=== PATIENT | male | born 1970 | race Caucasian/White ===

== ENCOUNTER 2021-04-06 08:29 | Emergency (ER) | payer OTHER, SELFPAY ==
[2021-04-06 08:42] VITALS: BP 144/72; PULSE 104; RESP 18; TEMP 36.7; O2SAT 95
--- NOTE | 2021-04-06 09:01 | W.ED.GENAD ---
Discharge Plan Disposition Patient Disposition: HOME Condition: Stable Discharge Details Clinical Impression: Muscle spasm, Low back pain, Sciatica Primary Care Provider: Hemanth Simon ED Provider: Filomena Watt Home Meds and New Rx's Prescriptions: New methocarbamol 750 mg tablet 1,500 mg PO QID PRN (Reason: muscle spasm) Qty: 20 RF: 0 Continued ibuprofen 800 mg Tablet 800 mg PO TID PRNRF: 0 Serena Back and Body 500-32.5 mg Tablet 2 tab PO PRN PRNRF: 0 Discharge Instructions Instructions: Methocarbamol (By mouth), Sciatica (ED), Muscle Spasm (ED) Additional Instructions: Your exam today is most concerning for recurrence of your muscle spasm, low back pain and sciatica. Please encourage hydration. Please use heat to help with muscle spasm and discomfort. You may continue with Tylenol and ibuprofen as needed for discomfort. Please take as directed on the bottle. You received Tylenol here this morning. You may continue with the lidocaine patches as well to help with your discomfort. You are being sent home with methocarbamol which should help as a muscle relaxer. Please not drive will take this medication as it can cause sedation. As discussed, you are not given his medications. You need to drive home. You may take 2 tabs 3-4 times per day as needed for spasm. Please encourage gentle stretching. Referral for therapy has also been attached, please call local providers to arrange for follow-up appointment. You are no longer an established patient with Dr. Simon, I have asked her care management team to help establish local primary care in the next 2 weeks. If you develop fever/chills, increased pain, inability stay hydrated, change in bowel or bladder habits or other new/worsening symptoms please seek care urgently once again. Stand Alone Forms: Physical Therapy Referral Referrals: Hemanth Simon [Primary Care Provider] - Discharge Data Discharge Date/Time-TO BE ENTERED AT DEPARTURE: 04/06/21 09:45 Medical Decision Making Patient is a pleasant 50-year-old male presenting today with chief complaint of left lower back pain and pain radiating into the left leg. This is similar to when I had evaluated this patient in 2018. He states that he has had a progressive increase in his discomfort over the past 3 days. He states that this occurred a few days after lifting a deer as well as sitting and unusual places while hunting. Pain is in the left lower aspect of his back. Radiates down the left leg. He denies any change in urinary habit. States he did not have a bowel movement yesterday but this is not atypical for him, particularly when he is uncomfortable or stressed. He denies any fevers or chills. No trauma. On exam, patient appears nontoxic. He does appear uncomfortable. He has a cane with him which he states he does not typically ambulate with. However, he states that when he sneezes, pain increases and the cane can be helpful. Patient has no midline tenderness, no step-offs. No erythema or rash. Patient has notable spasm over the left side of the lower back, worse over the SI joint. With palpation over this area, pain increases and he does have pain that radiates down his leg more. He has good rotation of his back but has increased pain with forward flexion. He has no saddle paresthesias. Sensations are equal in both lower extremities. 2+ distal pulses. Intact capillary refill. Calf soft and nontender. No lower extremity edema. No evidence at this time to suggest cauda equina. No acute trauma. No midline pain. I do not see indication for imaging at this time. Primarily concern at this time for flare of SI joint pain with associated sciatica. Notable muscle spasm on exam. Patient was treated last time with anti-inflammatory, acetaminophen, Lidoderm patch and muscle relaxant. Will repeat this for him as it worked well for him last time. Patient did drive himself here. I did offer to have him the try to have soemone pick him up so he is able to take the muscle relaxer while here. However, he would prefer to be able to take this with home. Will give acetaminophen and Lidoderm now. Patient did have NSAID prior to arrival. Will prescribe Methocarbamol. He iwll continue with heat/ice, stretching, APAP/NSAID. Encourrged hydration. Will refer to PT for his acute flare as well as prevention in the future. Encouraged close f/u with PCP. Strict return precautions discussed. All of his quesetions and concerns were addressed, patient is in agreement with this plan. I tried to make PCP appointment for the patient. He is no longer an established patient as it has been so many years since he has been seen with Dr. Simon. Have asked care management to ensure prompt f/u with local PCP. HPI General Mode of arrival: ambulatory. Date/Time Provider Initiated Documentation: 04/06/21 09:01. Limitations to Documentation: no limitations. Information obtained by: patient, RN notes reviewed and old records reviewed. History of Present Illness 50 year old M presents to the emergency department with the chief complaint of left sided low back pain radiating into LLE, described as severe and similar to prior episodes, with intensity rated at 10. Quality is described as sharp, and is localized to the back. Patient extremity. Patient started experiencing this day(s) and it has been constant. Immobilization improves symptom(s), (feels improved when in one spot but notes that after being sedentary, pain increased) Movement worsens symptoms . Patient notes no other symptoms.; denies chest pain, cough, fever/chills, headaches, malaise, nausea/vomiting, rash, shortness of breath and weakness. Related Data Home Medications Medication Instructions Recorded Confirmed Serena Back and Body 2 tab PO PRN PRN 04/06/21 04/06/21 ibuprofen 800 mg PO TID PRN 04/06/21 04/06/21 methocarbamol 1,500 mg PO QID PRN #20 tab 04/06/21 Previous Rx's Medication Instructions Recorded methocarbamol 1,500 mg PO QID PRN #20 tab 04/06/21 Allergies Allergy/AdvReac Type Severity Reaction Status Date / Time No Known Allergies Allergy Unverified 12/25/13 13:11 General Stated Complaint: Nk/Back Pain SHAUNA: 4 Review of Systems Constitutional Constitutional: Reports as per HPI, Denies chills, Denies fatigue, Denies fever(s) and Denies headache(s) ENT Ears, Nose, Mouth, and Throat: Denies headache(s) Cardiovascular Cardiovascular: Denies chest pain, Denies dyspnea and Denies dyspnea on exertion Respiratory Respiratory: Denies cough, Denies dyspnea and Denies dyspnea on exertion Gastrointestinal Gastrointestinal: Denies abdominal pain, Denies change in bowel habits and Denies fecal incontinence Genitourinary Genitourinary: Reports as per HPI, Denies urinary hesitancy and Denies urinary incontinence Musculoskeletal Musculoskeletal: Reports as per HPI, Reports back pain, Denies muscle weakness, Denies numbness and Reports stiffness Integumentary/Breasts Skin/Breast: Reports as per HPI and Denies rash Neurologic Neurologic: Reports as per HPI, Denies headache(s), Denies localized weakness, Denies numbness, Denies radicular pain, Denies sensory deficit and Reports tingling (when pain is severe, has had some tingling on the left foot, none currently) Endocrine Endocrine: Denies fatigue COUNTS INCLUDE 234 BEDS AT THE [facility] Active Problem List (Updated 04/06/21 @ 09:31 by SUHAIL Hameed) Muscle spasm (Acute) Low back pain (Acute) Sciatica (Acute) Social History Smoking/Tobacco Use Status: Current every day Smoking risk assessment performed?: Yes Alcohol Intake: current Alcohol Intake frequency: 0-2 drinks per day Alcohol type: beer Drug use: Never Substance use type: does not use Do you feel safe in your relationship?: Yes Exam Const General: cooperative, healthy appearing, comfortable (appears stiff, uncomfortable with movements), no acute distress, well developed and well groomed Nutritional Appearance: average body habitus and well nourished Orientation: alert and awake Eyes General: appearance normal, both eyes and all related structures Neck Neck: normal visual inspection, full ROM, no lymphadenopathy and no meningeal signs Resp Effort & Inspection: normal respiratory effort and able to speak in complete sentences Auscultation: clear to auscultation bilaterally, no rales, no rhonchi and no wheezes Cardio Rate: regular rate Rhythm: regular rhythm Heart Sounds: S1 normal and S2 normal GI Inspection: normal to inspection Palpation: soft and nontender Auscultation: normal bowel sounds Back/Spine/Pelvis Back/spine/pelvis image: 1. Area of pain with palpation. No midline pain or step off. No rash. Palpable muscle spasm over this area. With palpation, pain radiates into LLE. Full ROM rotationally. Forward flexion to 45 degrees secondarty to pain. Able to extend but discomfort doing so. No saddle paresthesias. Intact reflexes compared to contralateral side. 5/5 strength in BLE. Sensation intact Skin General skin exam: no rashes or lesions noted Neuro General: patient alert and patient awake Cognition: normal cognition Speech: speech normal Gait: antalgic (appears stiff, has a cane but not depending on this) Motor: muscle tone normal throughout, strength 5/5 throughout, no movement abnormalities noted and no fasciculations Sensory Exam: no sensory deficits noted (no saddle paresthesias) DTR's: Rt Patellar: 2+, Lt Patellar: 2+, Rt Ankle: 2+ and Lt Ankle: 2+ Extrem General: normal to inspection, full ROM, capillary refill normal, no joint enlargement, no pedal edema and no calf tenderness Psych Appearance: grossly normal and well kempt Mental Status: mental status grossly normal Speech and Movement: speech and movement normal Course Vital Signs Vital signs: Vital Signs Temperature 36.7 C 04/06/21 08:42 Pulse 104 H 04/06/21 08:42 Respiratory Rate 18 04/06/21 08:42 Blood Pressure 144/72 H 04/06/21 08:42 Pulse Oximetry 95 04/06/21 08:42 Temperature 36.7 C 04/06/21 08:42 Temperature Source Skin 04/06/21 08:42 Pulse 104 H 04/06/21 08:42 Respiratory Rate 18 04/06/21 08:42 Respiratory Effort Non-Labored 04/06/21 08:46 Blood Pressure 144/72 H 04/06/21 08:42 Blood Pressure Position Sitting 04/06/21 08:42 Pulse Oximetry 95 04/06/21 08:42 Oxygen Delivery Method Room Air 04/06/21 08:42 Oxygen Flow Rate 0 04/06/21 08:42 Pain Level 10 04/06/21 08:48 PAWSS Have you Been Recently Intoxicated or Drunk Within the Last 30 days?: No Have you Ever Experienced Previous Episodes of Alcohol Withdrawal?: No Have you ever Experienced Withdrawal Seizures?: No Have you ever Experienced Delirium Tremens(DT)s?: No Have you ever undergone Alcohol Rehabilitation Treatment (i.e, inpt ot outpatient treatment programs)?: No Have you ever Experienced Blackouts?: No Have you ever Combined Alcohol with other Downers within the last 90 days?: No Have you ever Combined Alcohol with any other Substance of Abuse during the last 90 days?: No Positive Blood Alcohol level on Presentation? [PCS.BAL]: No Evidence of Increased Autonomic Activity (i.e. HR>120, tremor, sweating, agitation, nausea)?: No Result: 0
[2021-04-06] MEDS: Acetaminophen 500 MG TAB 1000 MG PO (09:33)
[2021-04-06] MEDS: Lidocaine 5% Patch 1 PATCH TP (09:34)
--- NOTE | 2021-04-06 09:37 | NUR.NOTE ---
Nursing Note: Referral given to Care Management for back pain, muscle spasms, sciatica and establish care within 2 week with new PCP. Radha Strickland
[2021-04-06 09:39] VITALS: PULSE 84; RESP 16
[2021-04-06] MEDS: Methocarbamol 750 MG TAB 3000 MG PO (09:43)
--- NOTE | 2021-04-07 11:19 | CMPROGNOTE_ITS ---
- If Service Date Differs Date of service: 04/07/21 Time of Service: 11:19 Care Management Progress Note Sang is seen in the ED for back pain. At the request of ED provider, REYNOLD coordinates a referral to Dr. Vishnu Parisi, [facility], on-call provider, to assist Sang in obtaining a follow up appointment and in establishing care with a PCP.
== END 2021-04-06 09:45 | disposition home or self-care (01) ==
PROVIDERS: Emergency Provider Physician Assistant; PCP Internal Medicine
DX: M62.830 Muscle spasm of back (principal); M54.42 Lumbago with sciatica, left side
CPT/HCPCS: 99283

== ENCOUNTER 2022-05-27 16:04 | Outpatient (REF) | payer OTHER, SELFPAY ==
[2022-05-27 15:41] LABS: Abs Immature Grans 0.06 10^3/uL (0.0-0.06); Absolute Eosinophil Count 0.19 10^3/uL (0.0-0.7); Absolute Lymphocyte Count 1.99 10^3/uL (1.2-3.4); Absolute Monocyte Count 0.71 10^3/uL (0.1-0.8); Absolute Neutrophil Count 7.12 10^3/uL (1.2-6.7); Eosinophils % 1.9; HCT 50.3 % (40.0-50.0); HGB 17.3 g/dL (13.5-17.5); Immature Grans % 0.6; Lymphocytes % 19.6; MCH 31.7 pg (27.0-33.0); MCHC 34.4 % (32.0-36.0); MCV 92 fL (80-95); MPV 10.3 fL (8.0-11.0); Neutrophils % 69.9; Platelet Count 258 10^3/uL (130-400); RBC 5.46 10^6/uL (4.36-5.78); RDW 12.4 % (11.8-14.1); RDW-SD 42.4 fL; WBC 10.17 10^3/uL (4.4-10.8)
[2022-05-27 16:02] LABS: Calculated LDL 129 mg/dL (<100); Cholesterol 194 mg/dL (<200); HDL Cholesterol 47 mg/dL (40-60); Triglyceride 94 mg/dL (<150)
== END 2022-05-27 16:05 | disposition home or self-care (01) ==
LOC: NCHCN 16:04
PROVIDERS: PCP Internal Medicine; Visit Provider Nurse Practitioner Family
DX: R03.0 Elevated blood-pressure reading, without diagnosis of hypertension (principal); R10.31 Right lower quadrant pain; N52.9 Male erectile dysfunction, unspecified; Z12.5 Encounter for screening for malignant neoplasm of prostate; Z13.220 Encounter for screening for lipoid disorders
CPT/HCPCS: 80061; 84153; 85025

== ENCOUNTER 2022-10-12 13:27 | Outpatient (REF) | payer OTHER, SELFPAY ==
[2022-10-12 16:12] LABS: ALT 33 U/L (16-63); AST 20 U/L (15-37); Alkaline Phosphatase 73 U/L (46-116); Anion Gap 10.2 mmol/L (3-11); BUN 14 mg/dL (7-18); Bilirubin, Total 0.4 mg/dL (0.2-1.0); CO2 24.8 mmol/L (21.0-32.0); CREATININE 0.8 mg/dL (0.70-1.30); Calcium 9.1 mg/dL (8.5-10.1); Calculated LDL 86 mg/dL (<100); Chloride 103 mmol/L (98-107); Cholesterol 156 mg/dL (<200); Estimated GFR 106.48 (mL/min/1.73m2); Glucose 126 mg/dL (74-106); HDL Cholesterol 55 mg/dL (40-60); Potassium 4.3 mmol/L (3.5-5.1); Sodium 138 mmol/L (136-145); Total Protein 7.4 g/dL (6.4-8.2); Triglyceride 77 mg/dL (<150)
== END 2022-10-12 13:28 | disposition home or self-care (01) ==
LOC: NCHCN 13:27
PROVIDERS: PCP Internal Medicine; Visit Provider Nurse Practitioner Family
DX: I10 Essential (primary) hypertension (principal); Z13.220 Encounter for screening for lipoid disorders
CPT/HCPCS: 80053; 80061

== ENCOUNTER 2023-11-29 19:03 | Outpatient (REF) | payer BC, SELFPAY ==
[2023-11-29 16:48] LABS: Hemoglobin A1C 5.7 % (<5.7)
[2023-11-29 17:02] LABS: Calculated LDL 79 mg/dL (<100); Cholesterol 149 mg/dL (<200); HDL Cholesterol 53 mg/dL (40-60); Triglyceride 87 mg/dL (<150)
== END 2023-11-29 19:04 | disposition home or self-care (01) ==
LOC: NCHCN 19:03
PROVIDERS: PCP Internal Medicine; Visit Provider Nurse Practitioner Family
DX: E78.5 Hyperlipidemia, unspecified (principal); Z13.1 Encounter for screening for diabetes mellitus
CPT/HCPCS: 80061; 83036

== ENCOUNTER 2024-05-31 08:55 | Day surgery (SDC) | payer OTHER, SELFPAY ==
--- NOTE | 2024-05-30 21:08 | PDOC.DSDIS_ITS ---
Date of service: 05/31/24 Discharge Plan Disposition Patient Disposition: Home Condition: Good Discharge Details Reason For Visit: colon cancer screening Attending Provider: Pao Pratt Primary Care Provider: Hemanth Simon Home Meds and New Rx's Prescriptions: Continued lisinopril 10 mg tablet 10 mg PO DAILY Discontinued bisacodyl [Dulcolax (bisacodyl)] 5 mg tablet,delayed release (DR/EC) 5 mg PO ONCE Qty: 4 0RF Rx Instructions: Take per colonoscopy instructions provided by ordering providers office polyethylene glycol 3350 17 gram/dose powder 17 g PO ONCE Qty: 238 0RF Rx Instructions: Take per colonoscopy instructions provided by ordering providers office Discharge Instructions Additional Instructions: DSU Colonoscopy Post- Op Instructions Instructions for Everyone who is given Anesthesia: For your safety, please do the following for the next twenty-four (24) hours: *Do Not operate a motor vehicle (car, truck, motorcycle, etc.) *Do Not drink alcoholic beverages or use any recreational drugs for the first 24 hours or while taking pain medications. The medications in your body may have a reaction that can be dangerous. *Do Not make any important decisions or sign any important papers. Findings: -Large colon polyp. -Diverticula. Make sure you are moving your bowels on a regular basis and not straining. If you find you are having problems with constipation/straining, then is recommended you a fiber supplement daily such as Metamucil. -Smoking cessation is recommended to prevent colon cancer. Follow up: My office will send you a letter in 3-4 with time with the results of the pathology. Most likely we will want to repeat a colonoscopy in 3 years time. 1. No lifting over 20 pounds or strenuous activity for the first 24 hours after your procedure. After 24 hours there are no restrictions on your activity but you may feel fatigued for a few days. 2. After you arrive home you may have a light meal and return to your normal diet as you can tolerate it without feeling sick to your stomach. 3. You may have a bloated, gaseous feeling in your belly (abdomen) after a colonoscopy. Passing gas and belching will help. Walking or lying down on your left side with your knees flexed may relieve the discomfort. Call the office at [phone] (Office) or [phone] (Hospital) right away if you notice any of the following: a.Vomiting of blood or ?coffee ground stools?. b.Rectal bleeding 1Tbsp, blood clots or continuous bleeding. c.Severe belly (abdominal) pain. d.A hard distended belly (abdomen) and an inability to pass gas. 4. Please don?t expect to have a normal BM (bowel movement) for 2-3 days after your procedure. 5. If there are questions regarding the findings of your procedure, please contact your doctor 6. If you are unable to contact your doctor with a problem, contact the hospital at [phone]. 7. Continue all your regular medications unless directed otherwise. I understand the above instructions and have no questions. Signature of Patient or Adult Escort Name of Responsible Adult Escort Signature of Nurse Date/Time Stand Alone Forms: Anesthesia Discharge Inst., Milton Tineo (DSU) Activity:: see above Diet:: see above Discharge Orders Discharge Orders: Discharge Order (Routine); Ordered 05/31/24 Ordered By: Pao Pratt DS: Diagnosis Discharge Diagnosis (1) Screening for malignant neoplasm of colon performed: Status: Acute Asessment and Plan: The patient is seen and examined after their colonoscopy.? The patient has been able to pass gas.? They are not having abdominal pain.? They have been able to tolerate liquids and a snack.? They do not have any nausea or vomiting.? They are not having any chest pain or shortness of breath.??? They are not having any rectal bleeding. Their vital signs have been stable-see nursing notes. We discussed findings during their colonoscopy, and any biopsies that were done/polyps that were removed. The patient will be sent a letter with any biopsy results, and when to repeat the colonoscopy.-see discharge instructions. Patient was given explicit instructions to follow-up regarding colonoscopy-refer to discharge instructions.? We reviewed resumption of medications. Patient verbalized understanding and discharged in stable and satisfactory condi tion- See nursing notes. (2) Diverticula of colon: Status: Acute (3) Adenomatous polyps: Status: Acute (4) Smoker: Status: Acute
--- NOTE | 2024-05-30 21:12 | W.COLOREPORT ---
Date of service: 05/31/24 Time of Service: 11:45 Colonoscopy Report Date of procedure: 05/31/24 Pre-op diagnosis general: CRC screening Post-op diagnosis procedure note: other (Polyps/diverticula/internal hemorrhoids) Surgeon: Pao Pratt Anesthesia Type: General:No Airway Estimated blood loss (mL): 2 Pathology: other Complications: None Disposition: same day Prep: Miralax/Dulcolax Retraction Time: 19 Procedure Description: After informed consent was obtained, explaining risks of the procedure, including but not limits to: bleeding, infections, complications of anesthesia, perforations (which may require antibiotics and /or surgery and stay in the hospital), and abdominal pain/cramping. The patient was taken to the procedure room and placed in a left decubitous position. Monitors were applied and a time out was done. The patients name, date of , procedure, allergies to medications and metal in their body was reviewed. The patient was then sedated. Once sedated and comfortable a rectal exam was done. External exam was normal. Internal exam revealed a normal sphincter tone and no palpable masses. The prostate no palpable masses The previously lubricated Olympus scope was then introduced (see RN notes for scope number) and retrofelexed. Grade 2 internal hemorrhoids x 2 columns were identified. The scope was then advanced to the cecum without difficulty. The TI and appendiceal orifice were identified. The scope was then slowly retracted over 19 minutes back into the rectum. Polyps: A flat, .5cm polyp was found at appendiceal orifice. At 40 cm he had a large 2 cm polyp that was on a long stock. This is removed with a hot snare. All specimen is retrieved. A clip is placed over the end of the stalk. This was removed with a cold biting forceps. All of the specimen was retrieved. This will be sent to pathology. There is no bleeding noted from the polypectomy site. Diverticula: pt had a moderate amount of small mouthed diverticula in the sigmoid colon. There were no signs of active bleeding or infection. The mucosa is pink and healthy w/ a normal vascular pattern. The scope was removed, and the patient was woken up and taken back to Same day surgery in stable condition. The patient tolerated the procedure well and there were no immediate complications. Follow up: The patient should follow up in 3 years, unless they develop changes in bowel habits or other new gastrointestinal complaints. [place] Bowel Prep [place] Bowel Prep Right Colon: 3 Left Colon: 3 Transverse Colon: 3 Total Score: 9
[2024-05-31 09:32] VITALS: BP 126/82; PULSE 88; RESP 16; TEMP 36.7; O2SAT 94
--- NOTE | 2024-05-31 09:51 | W.ANESPRE ---
General Info Date of Service Date Performed: 05/31/24 Height: 6 ft 2 in Weight: 116.7 kg Body Mass Index (BMI): 33.0 Surgical Procedure: Operation Date: 05/31/24 09:50 Proposed Procedure Side Surgeon eva Pratt, Meds Allergies and Home Medications Allergies Allergy/AdvReac Type Severity Reaction Status Date / Time No Known Allergies Allergy Verified 05/31/24 09:30 Home Medication ?Medication ?Instructions ?Recorded lisinopril 10 mg tablet 10 mg PO DAILY 08/22/22 Current Visit Medications: Current Medications Generic Name Dose Route Start Last Admin Trade Name Freq PRN Reason Stop Dose Admin Hyoscyamine Sulfate 0.125 mg 05/31/24 05:19 Hyoscyamine 0.125 Mg Sl/Oral/Chew SL 06/30/24 05:18 DIRECTED PRN Ringer's Solution 1,000 mls @ 0 mls/hr 05/31/24 06:00 IV 05/31/24 23:59 INFUSION STEVEN Ringer's Solution 1,000 mls @ 80 mls/hr 05/31/24 09:15 IV 06/30/24 09:14 INFUSION STEVEN IV Miscellaneous Supplies 1 each 05/31/24 06:00 Iv Access IV 05/31/24 23:59 DIRECTED STEVEN Ondansetron HCl 4 mg 05/31/24 05:19 Ondansetron 4 Mg/2 Ml Vial IVP 06/30/24 05:18 Q4H PRN PRN Nausea / Vomiting Sodium Chloride 0 ml 05/31/24 06:00 Normal Saline Flush 10 Ml Syr IV 05/31/24 23:59 PRN PRN Sodium Chloride 0 ml 05/31/24 06:00 Normal Saline 10 Ml Vial IJ 05/31/24 23:59 DIRECTED PRN Sterile Water 0 ml 05/31/24 06:00 Water,Injection,Sterile 10 Ml Vial IJ 05/31/24 23:59 DIRECTED PRN PFSH Active Problems Active Problems: Problem Status Onset Code Screening for malignant neoplasm of colon performed Acute Z12.11 Smoker Acute F17.200 RLQ abdominal pain Acute R10.31 Back pain of lumbar region with sciatica Acute M54.40 Erectile dysfunction Acute N52.9 Right groin pain Acute R10.31 Curvature of the penis Acute Q55.61 Muscle spasm Acute M62.838 Low back pain Acute M54.50 Sciatica Acute M54.30 Medical History Medical History Lumbosacral radiculopathy Essential (primary) hypertension Nicotine dependence Hyperlipidemia Surgical History Surgical History Hx of tonsillectomy Tobacco Smoking/Tobacco Use Status: Current every day Tobacco Type: cigarettes Alcohol Alcohol Intake: current Alcohol intake frequency: 0-2 drinks per day Alcohol type: beer and hard liquor Details: At least 3 drinks/day Substance Use Substance use: Never Substance use type: does not use Vital Signs and Lab Results Vital Signs Most Recent Vital Signs in EMR: Most Recent Vital Signs Temp Pulse Resp BP Pulse Ox 36.7 C 88 16 126/82 94 05/31/24 09:32 05/31/24 09:32 05/31/24 09:32 05/31/24 09:32 05/31/24 09:32 Lab Results Blood Type / Crossmatch: No Data to Display Complete Blood Count: No Data to Display Complete Metabolic Panel: No Data to Display Liver Function Panel: No Data to Display Coagulation Panel: No Data to Display Cardiac Panel: No Data to Display Arterial Blood Gas: No Data to Display Venous Blood Gas: No Data to Display Pancreas Panel: No Data to Display Thyroid Panel: No Data to Display Infectious Disease: No Data to Display Blood Cultures: No Data to Display Toxicology Panel: No Data to Display Anesthesia Assessment and Plan Anesthesia History Personal History: No History of Anesthesia Complications Family History: No Family History of Anesthesia Complications Exercise Tolerance Exercise Tolerance: Metabolic Equivalents>4 Pertinent Negatives Pertinent Negatives: No Symptoms of GERD and No Major Pulmonary Symptoms or Complaints Cardiac & Pulmonary Exam Cardiac Exam: Normal S1/S2 Heart Sounds Pulmonary Exam: Clear Bilateral Breath Sounds Implantable Cardiac Device Does patient have a Pacemaker or an ICD?: No Airway Exam Known Difficult Airway: No Mallampati Class: 2 Mouth Opening: Normal (> 3cm) Thyromental Distance: Greater than 3 cm Neck Range of Motion: Full ROM Neck Circumference: Normal Teeth Condition: Normal Dentition ASA Classification ASA Score: ASA 2 Emergency Case?: No NPO Status NPO Status: NPO Clears >2 hours, Solids >8 hours Anesthesia Plan Resuscitation Status: Full Code Anesthesia Technique: General Anesthesia Airway Planned: Natural Airway Monitors Used: Standard Monitors
[2024-05-31] MEDS: Lactated Ringers 1,000 ML 80 ML IV (09:52)
[2024-05-31 10:04] VITALS: BMI 33.0
--- NOTE | 2024-05-31 10:23 | BOWEL_PTH ---
PATIENT: Sang Villafana LOC: [facility] U#:[id number] AGE/SX: 53/M ROOM: RE05/31/[address]: Pao Pratt : 1970 BED: DIS: 05/31/2024 SPEC #: [id number] RECD: 05/31/24 12:58 STATUS: GENOVEVA REQ #: [id number] RASHI: 05/31/24 10:[address]: Pao Pratt DEPT: Surgical Specimen RECD BY: Lina Coe ENTERED: 05/31/24 12:59 SP TYPE: Bowel OTHR DR: Hemanth Simon Tissues: 1 - BIOPSY BOWEL 2 - BIOPSY BOWEL Procedures: GROSS AND MICRO LEVEL 4 Comments: [id number]
[2024-05-31 10:51] VITALS: BP 118/88; PULSE 80; RESP 20; TEMP 36.5; O2SAT 96
[2024-05-31 11:24] VITALS: BP 134/72; PULSE 71; RESP 20; O2SAT 98
--- NOTE | 2024-05-31 12:04 | W.ANESPOSTOP ---
Postoperative Evaluation Date, Time and Location Date Performed: 05/31/24 Time Performed: 11:25 Patient Location: Day Surgery Unit Vital Signs Most Recent Imported Vital Signs: Most Recent Vital Signs Temp Pulse Resp BP Pulse Ox 36.5 C 71 20 134/72 98 05/31/24 10:51 05/31/24 11:24 05/31/24 11:24 05/31/24 11:24 05/31/24 11:24 Pain Score Most Recent Pain Score: Most Recent Pain Score Pain Level 0 05/31/24 09:32 Assessment Mental Status: Awake (Alert & Oriented to Patient Baseline) Airway and Respiratory Function: Patent airway with normal (patient baseline) respiratory exam Cardiovascular Function: Hemodynamically Stable Hydration Status: Adequately Hydrated Nausea & Vomiting: No Nausea or Vomiting Pain: Pt. Denies Any Pain Peripheral Nerve Block: Patient did not receive a nerve block
== END 2024-05-31 12:37 | disposition home or self-care (01) ==
LOC: SUR 08:55
PROVIDERS: PCP Internal Medicine; Visit Provider Surgery
PROC: 0DJD8ZZ Inspection of Lower Intestinal Tract, Via Natural or Artificial Opening Endoscopic (ICD-10-PCS; CPT 45378; principal; 2024-05-31 09:45)
DX: Z12.11 Encounter for screening for malignant neoplasm of colon (principal); K57.30 Diverticulosis of large intestine without perforation or abscess without bleeding; D37.4 Neoplasm of uncertain behavior of colon; F17.210 Nicotine dependence, cigarettes, uncomplicated; K64.1 Second degree hemorrhoids; D12.1 Benign neoplasm of appendix
CPT/HCPCS: 45385; 88305; J2250; J2704

== ENCOUNTER 2024-07-30 15:50 | Outpatient (REF) | payer OTHER, SELFPAY ==
[2024-07-30 16:15] LABS: ALT 41 U/L (16-63); AST 23 U/L (15-37); Albumin 3.8 g/dL (3.4-5.0); Alkaline Phosphatase 74 U/L (46-116); Anion Gap 9.5 mmol/L (3-11); BUN 10 mg/dL (7-18); Bilirubin, Total 0.3 mg/dL (0.2-1.0); CO2 27.5 mmol/L (21.0-32.0); CREATININE 0.8 mg/dL (0.70-1.30); Calcium 9.5 mg/dL (8.5-10.1); Chloride 103 mmol/L (98-107); Estimated GFR 105.17 (mL/min/1.73m2); Glucose 110 mg/dL (74-106); Potassium 4.6 mmol/L (3.5-5.1); Sodium 140 mmol/L (136-145); Total Protein 7.2 g/dL (6.4-8.2)
== END 2024-07-30 15:51 | disposition home or self-care (01) ==
LOC: NCHCN 15:50
PROVIDERS: PCP Internal Medicine; Visit Provider Nurse Practitioner Family
DX: I10 Essential (primary) hypertension (principal)
CPT/HCPCS: 80053